=== PATIENT | female | born 1980 | race Caucasian/White ===

== ENCOUNTER → 2018-04-06 | Day surgery (SDC) | payer MEDICAID, OTHER ==
[~2018-04-06] VITALS: Ht 162.6 cm; Wt 60.1 kg
[~2018-04-06] MED LIST: BUPIVACAINE HCL/PF 0.75% 10 ML VIAL IARTIC ONE; BUPIVACAINE HCL/PF 0.75% 10 ML VIAL ONE; FentaNYL CITRATE-PF 100 MCG/2 ML VIAL ONE; IBUP-2071 PO; IOHEXOL 300 MG/ML 10 ML VIAL IARTIC ONE; IOHEXOL 300 MG/ML 10 ML VIAL ONE; LIDOCAINE 1% 30 ML/SOD BICARB 8.4% 4 ML SQ ONE; LIDOCAINE HCL/PF 1% 30 ML VIAL ONE; LIDOCAINE HCL/PF 2% 5 ML VIAL ONE; MIDAZOLAM HCL 2 MG/2 ML VIAL ONE; MethylPREDNISolone SOD SUCC 125 MG/2 ML VIAL ONE; SODIUM BICARBONATE 50 MEQ/50 ML VIAL ONE; SODIUM CHLORIDE 0.9% 1,000 ML IV ONE; TRIAMCINOLONE ACETONIDE 40 MG/ML VIAL IARTIC ONE; TRIAMCINOLONE ACETONIDE 40 MG/ML VIAL ONE
[2018-04-06 10:44] VITALS: BP 117/68
[2018-04-06 10:55] VITALS: BP 108/69
== END | disposition home or self-care (01) ==
LOC: SDS 08:50
PROVIDERS: ATTEND Physical Medicine & Rehabilitation Pain Medicine
DX: M51.16 Intervertebral disc disorders with radiculopathy, lumbar region (principal); Z79.1 Long term (current) use of non-steroidal anti-inflammatories (NSAID)
CPT/HCPCS: 62323; 72275; 84703; 99152; J3301; J3490 ×3; J7030; Q9967; J2250; J2930; J3010